=== PATIENT | male | born 1970 | race African-American/Black ===

== ENCOUNTER 2016-11-24 08:09 | Emergency (ER) | payer SELFPAY ==
[~2016-11-24] VITALS: Ht 185.4 cm; Wt 101.1 kg
[~2016-11-24 08:09] MED LIST: ACET325T14 PO; ALPR1TAB2 PO; AMLO5TAB2 PO; AMLO5TAB4 PO; ASPI-650 PO; ATEN25TA PO; CARV6.2512 PO; CARV6.252 PO; LISI1TAB7 PO; LORA-446 PO; LORA1TAB PO; NICO1PAT4 TD; NITR0.4T SL; ONDA4TAB10 PO; PROP10TA PO; PROPANOL PO; SENN1TAB7 PO
[2016-11-24 09:22] LABS: ASPARTATE AMINO TRANSFERASE 26 U/L (15-37); BLOOD UREA NITROGEN 8 mg/dL (7-18)
[2016-11-24 11:31] VITALS: BP 119/80
== END 2016-11-24 13:02 | disposition home or self-care (01) ==
LOC: ED 08:59
DX: M54.5 Low back pain (principal); I12.9 Hypertensive chronic kidney disease with stage 1 through stage 4 chronic kidney disease, or unspecified chronic kidney disease; F43.10 Post-traumatic stress disorder, unspecified; F32.9 Major depressive disorder, single episode, unspecified
CPT/HCPCS: 36415; 71020; 80053; 81003; 83690; 85025; 93005

== ENCOUNTER 2018-08-01 13:31 | Emergency (ER) | payer SELFPAY ==
[~2018-08-01] VITALS: Ht 188 cm; Wt 95.2 kg
[~2018-08-01 13:31] MED LIST changes: +AMLO-150 PO; -AMLO5TAB2 PO; +LOSA1TAB19 PO; +NICO-486 TD; -NICO1PAT4 TD; -PROP10TA PO; +PROP10TA16 PO; -SENN1TAB7 PO; +SENN1TAB8 PO
[2018-08-01 14:53] LABS: MEAN CORPUSCULAR HEMOGLOBIN 39.5 pg (27.5-34.5); MEAN CORPUSCULAR HGB CONC 34.7 g/dL (33.2-36.2); MEAN PLATELET VOLUME 8.6 fL (7.4-10.4); PLATELET COUNT 191 x10^3/uL (130-400); RED BLOOD COUNT 3.86 x10^6/uL (4.38-5.82); RED CELL DISTRIBUTION WIDTH 12.9 % (9.4-14.8)
[2018-08-01 14:54] LABS: PROTHROMBIN TIME 10.6 Seconds (9.6-11.5)
[2018-08-01 14:57] LABS: ALANINE AMINOTRANSFERASE 46 U/L (12-78); ALBUMIN 3.9 g/dL (3.4-5.0); ANION GAP 5 mmol/L (5-15); CALCIUM 8.7 mg/dL (8.5-10.1); CHLORIDE 111 mmol/L (98-107); CREATININE 1.01 mg/dL (0.7-1.3)
[2018-08-01 14:59] LABS: ALKALINE PHOSPHATASE 84 U/L (45-117); BILIRUBIN,TOTAL 0.4 mg/dL (0.2-1.0); TOTAL PROTEIN 7.7 g/dL (6.4-8.2)
--- NOTE | 2018-08-01 15:25 | NUR ---
FROM LOBBY TO ROOM
--- NOTE | 2018-08-01 15:40 | NUR ---
PT PRESENTED TO ED WITH BLOOD IN STOOL X 3 TIMES TODAY. PT STATES BRIGHT RED BLOOD. PT A&OX4. PT PLACED IN ROOM AND PLACED ON BP AND CONT PULSE OXIMETER. ASSESSMENT COMPLETED. AT BEDSIDE.
[2018-08-01 15:53] LABS: MD YES
[2018-08-01 15:57] LABS: BASOS% (MANUAL) 1 % (0-1); EOS% (MANUAL) 1 % (1-7); LYMPH#(MANUAL) 2.42 x10^3/uL (1-3.4); LYMPHS% (MANUAL) 24 % (22-44); MONOS#(MANUAL) 0.71 x10^3/uL (0.3-2.7); MONOS% (MANUAL) 7 % (2-9); REACTIVE LYMPHS % (MANUAL) 3 % (0-0); SEG#(MANUAL) 6.46 x10^3/uL (1.8-6.8); SEGS% (MANUAL) 64 % (42-75)
[2018-08-01 16:00] LABS: POLYCHROMASIA 1+; TEAR DROPS 1+
[2018-08-01 16:01] LABS: <PLATELET ESTIMATE> ADEQUATE; <PLT MORPHOLOGY> NORMAL PLT MORPH
--- NOTE | 2018-08-01 16:58 | NUR ---
REPORT GIVEN TO ALEXA REDMAN
[2018-08-01 17:23] VITALS: BP 167/125
--- NOTE | 2018-08-01 17:27 | NUR ---
ALL TEST RESULTS POSTED. CHART UP FOR RECHECK
== END 2018-08-01 18:33 | disposition home or self-care (01) ==
LOC: ED 18:21
DX: K92.2 Gastrointestinal hemorrhage, unspecified (principal); K92.1 Melena; K21.9 Gastro-esophageal reflux disease without esophagitis; I10 Essential (primary) hypertension
CPT/HCPCS: 36415; 74177; 80053; 85025; 85610; 85730; 99284

== ENCOUNTER 2018-11-20 19:02 | Emergency (ER) | payer SELFPAY ==
[~2018-11-20] VITALS: Ht 185.4 cm; Wt 93.0 kg
[~2018-11-20 19:02] MED LIST changes: -NITR0.4T SL; +NITR0.4T41 SL; +SENN-177 PO; -SENN1TAB8 PO
[2018-11-20 19:06] VITALS: BP 155/88
[2018-11-20] MEDS ORDERED: ALBUTEROL/IPRATROPIUM 2.5MG/0.5MG, 3 ML ONE (19:19)
[2018-11-20] MEDS ORDERED: ALBUTEROL/IPRATROPIUM 2.5MG/0.5MG, 3 ML NPPB ONE (19:30)
== END 2018-11-20 20:07 | disposition home or self-care (01) ==
LOC: ED 20:01
DX: J20.9 Acute bronchitis, unspecified (principal); I10 Essential (primary) hypertension
CPT/HCPCS: 71046; 94640; 99283; J7512; J7620

== ENCOUNTER 2019-04-10 17:43 | Emergency (ER) | payer SELFPAY ==
[~2019-04-10] VITALS: Ht 188 cm; Wt 91.1 kg
[~2019-04-10 17:43] MED LIST changes: +LISI1TAB20 PO; -LISI1TAB7 PO
[2019-04-10] MEDS ORDERED: OXYcodone/APAP 10/325MG TABLET ONE (18:19)
[2019-04-10] MEDS ORDERED: OXYcodone/APAP 5/325MG TABLET PO ONE (18:30)
[2019-04-10 18:36] LABS: MEAN CORPUSCULAR HEMOGLOBIN 39.3 pg (27.5-34.5); MEAN CORPUSCULAR HGB CONC 33.6 g/dL (33.2-36.2); MEAN CORPUSCULAR VOLUME 116.9 fL (81-97); MEAN PLATELET VOLUME 8.2 fL (7.4-10.4); PLATELET COUNT 194 x10^3/uL (130-400); RED BLOOD COUNT 3.54 x10^6/uL (4.38-5.82); RED CELL DISTRIBUTION WIDTH 12.8 % (9.4-14.8)
[2019-04-10 18:41] LABS: MD YES
[2019-04-10 18:42] LABS: ALBUMIN 4.1 g/dL (3.4-5.0); ANION GAP 4 mmol/L (5-15); CHLORIDE 113 mmol/L (98-107); CREATININE 1.07 mg/dL (0.7-1.3)
--- NOTE | 2019-04-10 18:42 | NUR ---
PT TO CT
[2019-04-10 18:46] LABS: MICROSCOPIC NOT IND
[2019-04-10 18:50] LABS: CULTURE INDICATED? NO
[2019-04-10 19:10] VITALS: BP 171/108
--- NOTE | 2019-04-10 19:10 | NUR ---
PT BP REPORTED TO THE ERP. THE PT STATED THAT HE HAS A HX OF HTN AND HAS NOT BEEN ABLE TO GET HIS MEDICATIONS FILLED DUE TO LACK OF PCP CARE.
--- NOTE | 2019-04-10 19:11 | NUR ---
ROUNDS COMPLETED. NO DISTRESS. NO C/O AT THIS TIME. THE PT IS CONCERNED ABOUT HIS BP. CALL LIGHT IN REACH.
--- NOTE | 2019-04-10 19:23 | NUR ---
D/C INST REVIEWED W/ THE PT TO INCLUDE DILIGENT F/U OP W/ PCP. THE PT VERB UNDERSTANDING AND DENIES QUESTIONS. THE PT AMB OUT OF THE ED W/O DIFF.
[2019-04-10 19:25] LABS: EOS% (MANUAL) 2 % (1-7); LYMPH#(MANUAL) 2.73 x10^3/uL (1-3.4); LYMPHS% (MANUAL) 27 % (22-44); MONOS#(MANUAL) 0.81 x10^3/uL (0.3-2.7); MONOS% (MANUAL) 8 % (2-9); SEG#(MANUAL) 6.36 x10^3/uL (1.8-6.8); SEGS% (MANUAL) 63 % (42-75)
[2019-04-10 19:28] LABS: <PLATELET ESTIMATE> ADEQUATE; <PLT MORPHOLOGY> NORMAL PLT MORPH
== END 2019-04-10 19:35 | disposition home or self-care (01) ==
LOC: ED 19:29
DX: M54.5 Low back pain (principal); F17.200 Nicotine dependence, unspecified, uncomplicated; K21.9 Gastro-esophageal reflux disease without esophagitis; I12.9 Hypertensive chronic kidney disease with stage 1 through stage 4 chronic kidney disease, or unspecified chronic kidney disease; N18.9 Chronic kidney disease, unspecified
CPT/HCPCS: 36415; 74176; 80048; 81003; 82040; 85025; 99284

== ENCOUNTER 2019-12-30 12:44 | Emergency (ER) | payer SELFPAY ==
[~2019-12-30] VITALS: Ht 188 cm; Wt 90.0 kg
--- NOTE | 2019-12-30 13:44 | NUR ---
RIVETER AUTOMOBILE BRAKES: PT TO ROOM FROM [facility]
[2019-12-30] MEDS ORDERED: FAMOTIDINE 20 MG/2 ML IVPush ONE (14:30)
[2019-12-30] MEDS ORDERED: MORPHINE SULFATE 4 MG/ML, 1ML IVPush PRN (14:30)
[2019-12-30] MEDS ORDERED: SODIUM CHLORIDE FLUSH 10ML SYR IVF ONE (14:30)
[2019-12-30] MEDS ORDERED: ONDANSETRON 2MG/ML, 2ML IVPush ONE (14:30)
[2019-12-30] MEDS ORDERED: MORPHINE SULFATE 4 MG/ML, 1ML ONE (14:42)
[2019-12-30] MEDS ORDERED: FAMOTIDINE 20 MG/2 ML ONE (14:42)
[2019-12-30] MEDS ORDERED: ONDANSETRON 2MG/ML, 2ML ONE (14:42)
[2019-12-30 14:49] LABS: ALBUMIN 4.2 g/dL (3.4-5.0); ANION GAP 7 mmol/L (5-15); CALCIUM 9.2 mg/dL (8.5-10.1); CHLORIDE 104 mmol/L (98-107)
[2019-12-30 14:55] LABS: ALANINE AMINOTRANSFERASE 101 U/L (12-78); ALKALINE PHOSPHATASE 103 U/L (45-117); BILIRUBIN,TOTAL 1.2 mg/dL (0.2-1.0); TOTAL PROTEIN 7.9 g/dL (6.4-8.2); TROPONIN I < 0.015 ng/mL (0.000-0.045)
[2019-12-30 14:57] LABS: MEAN CORPUSCULAR HEMOGLOBIN 38.8 pg (27.5-34.5); MEAN CORPUSCULAR HGB CONC 33.4 g/dL (33.2-36.2); MEAN CORPUSCULAR VOLUME 116.2 fL (81-97); MEAN PLATELET VOLUME 8.9 fL (7.4-10.4); PLATELET COUNT 171 x10^3/uL (130-400); RED BLOOD COUNT 4.07 x10^6/uL (4.38-5.82); RED CELL DISTRIBUTION WIDTH 12.7 % (9.4-14.8)
[2019-12-30] MEDS ORDERED: LORazepam 2 MG/ML, 1ML ONE (15:13)
[2019-12-30 15:16] LABS: BASOPHILS # (AUTO) 0.02 x10^3/uL (0-0.1); BASOPHILS % (AUTO) 0 % (0-1); EOSINOPHILS % (AUTO) 1 % (1-7); LYMPHOCYTES # (AUTO) 1.76 x10^3/uL (1-3.4); LYMPHOCYTES % (AUTO) 20 % (22-44); MD MORPH REVIEW ONLY; MONOCYTES # (AUTO) 0.76 x10^3/uL (0.2-0.8); MONOCYTES % (AUTO) 9 % (2-9); NEUTROPHILS # (AUTO) 6.03 x10^3/uL (1.8-6.8); NEUTROPHILS % (AUTO) 70 % (42-75)
[2019-12-30 15:19] LABS: <PLATELET ESTIMATE> ADEQUATE; <PLT MORPHOLOGY> NORMAL PLT MORPH
[2019-12-30 15:19] LABS: MICROSCOPIC INDICATED
[2019-12-30] MEDS ORDERED: LORazepam 2 MG/ML, 1ML IVPush ONE (15:30)
[2019-12-30 15:52] VITALS: BP 152/115
== END 2019-12-30 16:43 | disposition home or self-care (01) ==
LOC: ED 15:09
DX: K29.20 Alcoholic gastritis without bleeding (principal); K70.10 Alcoholic hepatitis without ascites; F10.10 Alcohol abuse, uncomplicated; R00.0 Tachycardia, unspecified; I11.9 Hypertensive heart disease without heart failure; K21.9 Gastro-esophageal reflux disease without esophagitis; F17.200 Nicotine dependence, unspecified, uncomplicated; Y90.9 Presence of alcohol in blood, level not specified
CPT/HCPCS: 36415; 71045; 76700; 80053; 81001; 83690; 83880; 84484; 85025; 93005; 96374; 96375; 99285; J2060; J2270; J2405; J3490

== ENCOUNTER 2020-02-15 02:55 | Emergency (ER) | payer SELFPAY ==
[~2020-02-15] VITALS: Ht 188 cm; Wt 89.0 kg
[2020-02-15] MEDS ORDERED: hydrALAzine 20 MG/ML, 1ML ONE ×2 (03:25→05:07)
[2020-02-15] MEDS ORDERED: hydrALAzine 20 MG/ML, 1ML IV ONE ×2 (03:30→05:30)
--- NOTE | 2020-02-15 03:30 | NUR ---
THIS IS A 49Y M BIB EMS FROM [facility] PT STS WAS WORKING GOT DIZZY. PT HAS HX HTN AND HAS NOT BEEN TAKING MEDS DIRECTED. PER EMS PT GOT 324 ASA AND 3 DOSES OF NITRO BRAKE RELINER. PT ARRIVES WITH PIV IN PLACE NADN ABLE TO SPEAK IN FULL SENTENCES
--- NOTE | 2020-02-15 03:35 | NUR ---
ERP AT BEDSIDE FOR ASSESSMENT
[2020-02-15 03:41] LABS: MEAN CORPUSCULAR HEMOGLOBIN 39.2 pg (27.5-34.5); MEAN CORPUSCULAR HGB CONC 34.3 g/dL (33.2-36.2); MEAN CORPUSCULAR VOLUME 114.4 fL (81-97); PLATELET COUNT 215 x10^3/uL (130-400); RED BLOOD COUNT 3.47 x10^6/uL (4.38-5.82); RED CELL DISTRIBUTION WIDTH 13.1 % (9.4-14.8)
[2020-02-15 03:51] LABS: ALBUMIN 4.3 g/dL (3.4-5.0); ANION GAP 7 mmol/L (5-15); CALCIUM 9.5 mg/dL (8.5-10.1); CHLORIDE 109 mmol/L (98-107); CREATININE 1.12 mg/dL (0.7-1.3)
[2020-02-15 03:55] LABS: TROPONIN I < 0.015 ng/mL (0.000-0.045)
--- NOTE | 2020-02-15 04:13 | NUR ---
PT NOW SLEEPING ON GURGENEVIEVE NADN RESP EVEN AND UNLABORED.
[2020-02-15 04:15] LABS: BASOPHILS # (AUTO) 0.03 x10^3/uL (0-0.1); BASOPHILS % (AUTO) 0 % (0-1); EOSINOPHILS # (AUTO) 0.18 x10^3/uL (0-0.4); EOSINOPHILS % (AUTO) 2 % (1-7); LYMPHOCYTES # (AUTO) 1.99 x10^3/uL (1-3.4); LYMPHOCYTES % (AUTO) 22 % (22-44); MD MORPH REVIEW ONLY; MONOCYTES # (AUTO) 0.63 x10^3/uL (0.2-0.8); MONOCYTES % (AUTO) 7 % (2-9); NEUTROPHILS # (AUTO) 6.41 x10^3/uL (1.8-6.8); NEUTROPHILS % (AUTO) 69 % (42-75)
[2020-02-15 04:16] LABS: <PLATELET ESTIMATE> ADEQUATE; <PLT MORPHOLOGY> NORMAL PLT MORPH
[2020-02-15 06:03] VITALS: BP 170/125
--- NOTE | 2020-02-15 06:04 | NUR ---
PER DR MARCELO PT OK TO DC WITH BP 170/125. 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
== END 2020-02-15 06:05 | disposition home or self-care (01) ==
LOC: ED 04:03
DX: R42 Dizziness and giddiness (principal); I11.9 Hypertensive heart disease without heart failure; I49.3 Ventricular premature depolarization; K21.9 Gastro-esophageal reflux disease without esophagitis; F17.200 Nicotine dependence, unspecified, uncomplicated
CPT/HCPCS: 36415; 80048; 82040; 84484; 85025; 93005; 96374; 96376; 99284; J0360

== ENCOUNTER 2020-05-28 11:46 | Emergency (ER) | payer SELFPAY ==
[~2020-05-28] VITALS: Ht 188 cm; Wt 90.9 kg
--- NOTE | 2020-05-28 12:01 | NUR ---
UA CUP GIVEN
[2020-05-28 12:14] LABS: BASOPHILS % (AUTO) 1 % (0-1); EOSINOPHILS % (AUTO) 2 % (1-7); LYMPHOCYTES % (AUTO) 25 % (22-44); MEAN CORPUSCULAR HEMOGLOBIN 39.2 pg (27.5-34.5); MEAN CORPUSCULAR HGB CONC 34.7 g/dL (33.2-36.2); MEAN PLATELET VOLUME 8.2 fL (7.4-10.4); MONOCYTES % (AUTO) 8 % (2-9); NEUTROPHILS % (AUTO) 65 % (42-75); PLATELET COUNT 206 x10^3/uL (130-400); RED CELL DISTRIBUTION WIDTH 12.7 % (9.4-14.8)
[2020-05-28 12:25] LABS: ALANINE AMINOTRANSFERASE 20 U/L (12-78); ALBUMIN 4.2 g/dL (3.4-5.0); ANION GAP 4 mmol/L (5-15); CALCIUM 9.3 mg/dL (8.5-10.1); CHLORIDE 109 mmol/L (98-107); CREATININE 1.26 mg/dL (0.7-1.3)
[2020-05-28 12:27] LABS: ALKALINE PHOSPHATASE 62 U/L (45-117); BILIRUBIN,TOTAL 0.4 mg/dL (0.2-1.0); TOTAL PROTEIN 7.6 g/dL (6.4-8.2)
--- NOTE | 2020-05-28 12:34 | NUR ---
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
--- NOTE | 2020-05-28 12:40 | NUR ---
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
--- NOTE | 2020-05-28 12:48 | NUR ---
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
[2020-05-28 12:51] LABS: MD MORPH REVIEW ONLY
[2020-05-28 12:52] LABS: <PLATELET ESTIMATE> ADEQUATE; <PLT MORPHOLOGY> NORMAL PLT MORPH
[2020-05-28 13:02] LABS: MICROSCOPIC NOT IND
--- NOTE | 2020-05-28 13:28 | NUR ---
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
[2020-05-28 13:47] VITALS: BP 154/95
== END 2020-05-28 13:54 | disposition home or self-care (01) ==
LOC: ED 13:42
DX: K40.91 Unilateral inguinal hernia, without obstruction or gangrene, recurrent (principal); K29.00 Acute gastritis without bleeding; R10.13 Epigastric pain; R11.0 Nausea; I10 Essential (primary) hypertension; R05 Cough; K21.9 Gastro-esophageal reflux disease without esophagitis; F17.200 Nicotine dependence, unspecified, uncomplicated
CPT/HCPCS: 36415; 76700; 80053; 81003; 83690; 85025; 93005; 99285